=== PATIENT | female | born 1940 | race Caucasian/White ===

== ENCOUNTER 2024-02-07 12:07 | Inpatient (IN) | payer OTHER ==
[~2024-02-07] VITALS: Ht 149.9 cm; Wt 64.0 kg
[2024-02-07 12:43] LABS: Basophils # (auto) 0.1 10 ^3/uL (0-0.2); Basophils % (auto) 0.9 % (0.0-2.0); Eosinophils # (auto) 0.1 10 ^3/uL (0-0.8); Eosinophils % (auto) 1.9 % (0.0-7.0); Hematocrit 42.2 % (36.0-46.0); Hemoglobin 14.6 g/dL (12.2-16.2); Lymphocytes # (auto) 2.2 10 ^3/uL (0.4-5.4); Lymphocytes % (auto) 29.3 % (10.0-50.0); Mean Corpuscular Hemoglobin 30.8 pg (28.0-32.0); Mean Corpuscular Hgb Conc. 34.6 g/dL (32.0-36.0); Monocytes # (auto) 0.6 10 ^3/uL (0-1.3); Neutrophils # (auto) 4.4 10 ^3/uL (1.6-8.6); Neutrophils % (auto) 59.9 % (37.0-80.0); Red Blood Cells 4.74 10^6/uL (4.0-5.20); Red Cell Distribution Width 14.8 % (11.8-14.3); White Blood Cell 7.3 10^3/uL (4.4-10.8)
[2024-02-07 12:47] LABS: Chloride 109 mmol/L (98-107); Potassium 4.1 mmol/L (3.5-5.1); Sodium 143 mmol/L (136-145)
[2024-02-07 12:48] LABS: Anion Gap 10 (5-15); Carbon Dioxide 24 mmol/L (20-30)
[2024-02-07 12:53] LABS: BUN/Creatinine Ratio 22.9 (10.0-20.0); Blood Urea Nitrogen 19 mg/dL (9-23); Glucose 186 mg/dL (74-106)
[2024-02-07 13:33] LABS: Urine Bacteria FEW /hpf (None Seen); Urine Blood Negative /uL (Negative); Urine Clarity Clear (Clear); Urine Color Yellow (Yellow); Urine Mucus FEW (None Seen); Urine Protein, UAD TRACE (Negative); Urine Specific Gravity 1.024 (1.001-1.035); Urine Urobilinogen Normal (Negative); Urine WBC 59 /hpf (0 - 5); Urine pH 5.5 (5.0-9.0)
[2024-02-07 16:19] VITALS: PULSE 82; RESP 16; O2SAT 95
[2024-02-07] MEDS ORDERED: DEXTROSE (50%) 50ML SYRG IV PRN (16:45)
[2024-02-07] MEDS ORDERED: ONDANSETRON HCL 4 MG/2 ML VIAL IV PRN (16:45)
[2024-02-07] MEDS: InsuLIN REG 1unit/0.01ml Soln (100units/ml) SC SCH (17:00)
[2024-02-07] MEDS: ACCU-CHEK COMFORT CURVE STRIP VI SCH (17:00)
[2024-02-07 19:55] VITALS: PULSE 82; RESP 16; O2SAT 96
[2024-02-07] MEDS: hydrALAZINE HCL 20 MG/ML VL IV ONE (20:39)
[2024-02-07 22:26] VITALS: PULSE 82; RESP 18; O2SAT 98
[2024-02-07] MEDS: NITROFURANTOIN 100 mg CAP PO SCH (23:01)
[2024-02-07] MEDS: ATORVASTATIN 20 MG TAB PO SCH (23:02)
[2024-02-08 00:06] VITALS: BP 134/62; PULSE 86; RESP 18; TEMP 97.7; O2SAT 97
[2024-02-08 01:00] VITALS: BP 113/54; PULSE 89; RESP 18; TEMP 97.9; O2SAT 98
[2024-02-08] MEDS: ACETAMINOPHEN 325 MG TAB PO PRN (02:49)
[2024-02-08 05:00] VITALS: BP 119/44; PULSE 79; RESP 18; TEMP 98; O2SAT 95
[2024-02-08 08:00] VITALS: BP 118/52; PULSE 80; RESP 15; TEMP 97.8; O2SAT 95
[2024-02-08] MEDS: NIFEdipine ER 30 MG TAB PO SCH (10:26)
[2024-02-08] MEDS: LOSARTAN POTASSIUM 50 MG TAB PO SCH (10:26)
[2024-02-08] MEDS: CLOPIDOGREL BISULFATE 75 MG TAB PO SCH (10:26)
[2024-02-08] MEDS: ENOXAPARIN SOD 40 MG/0.4 ML SYRINGE SC SCH (10:27)
[2024-02-08 11:48] VITALS: BP 123/63; PULSE 80; RESP 17; TEMP 97.8; O2SAT 94
[2024-02-08 14:27] VITALS: BP 123/63; PULSE 80; RESP 17; TEMP 97.8; O2SAT 94
== END 2024-02-08 15:50 | disposition home or self-care (01) | DRG 872 ==
LOC: ER 12:16 → OVERFLOW 16:47 → WEST WING 21:41
PROVIDERS: ADMIT Nurse Practitioner; ATTEND Nurse Practitioner
DX: A41.9 Sepsis, unspecified organism (principal); N39.0 Urinary tract infection, site not specified; E78.5 Hyperlipidemia, unspecified; E11.65 Type 2 diabetes mellitus with hyperglycemia; I11.0 Hypertensive heart disease with heart failure; I50.9 Heart failure, unspecified; Z88.0 Allergy status to penicillin; Z86.73 Personal history of transient ischemic attack (TIA), and cerebral infarction without residual deficits; Z90.49 Acquired absence of other specified parts of digestive tract; Z91.041 Radiographic dye allergy status
CPT/HCPCS: 36415; 71045; 80048; 81001; 82962; 84443; 84484; 85025; G0378

== ENCOUNTER → 2024-02-10 | Outpatient (CLI) | payer OTHER ==
[2024-02-10 13:32] LABS: Chloride 107 mmol/L (98-107); Potassium 4.2 mmol/L (3.5-5.1); Sodium 140 mmol/L (136-145)
[2024-02-10 13:33] LABS: Anion Gap 8 (5-15); Carbon Dioxide 25 mmol/L (20-30)
[2024-02-10 13:38] LABS: BUN/Creatinine Ratio 26.8 (10.0-20.0); Blood Urea Nitrogen 26 mg/dL (9-23); Glucose 179 mg/dL (74-106)
[2024-02-10 13:45] LABS: Creatinine, Urine 243.25 mg/dL (30.0-125.0)
== END | disposition home or self-care (01) ==
LOC: LAB 12:45
PROVIDERS: ATTEND Internal Medicine
DX: E11.9 Type 2 diabetes mellitus without complications (principal)
CPT/HCPCS: 36415; 80048; 82043; 82570

== ENCOUNTER 2024-08-19 07:01 | Inpatient (IN) | payer OTHER ==
[~2024-08-19] VITALS: Ht 149.9 cm; Wt 67.2 kg
[2024-08-19] VITALS (13 sets, daily range): BP systolic 102–147; BP diastolic 46–68; PULSE 94–109; RESP 12–18; TEMP 97.6–98.4; O2SAT 93–99
[2024-08-19] MEDS: methylPREDNISolone SOD SUCC 125 MG/2 ML VL ONE (07:54)
[2024-08-19] MEDS: LIDOCAINE 2%HCL (LOCAL ANESTH.) INJ 20ML MDV ONE (07:55)
[2024-08-19] MEDS: MIDAZOLAM HCL 2MG/2ML 2ml VIAL (1mg/ml) ONE ×2 (07:55→10:20)
[2024-08-19] MEDS: fentaNYL CITRATE 100 MCG/2 ML VL ONE (07:55)
[2024-08-19] MEDS: diphenhdrAMINE HCL 50 MG/1 ML VL ONE (07:55)
[2024-08-19] MEDS: FAMOTIDINE (10MG/ML) 2ML VL IV ONE (07:56)
[2024-08-19] MEDS: hydrALAZINE HCL 20 MG/ML VL ONE (09:16)
[2024-08-19] MEDS: ANGIOMAX 250 MG VIAL IV ONE ×2 (09:24→10:44)
[2024-08-19] MEDS: SODIUM CHL 0.9% 50 ML ONE ×2 (09:25→10:45)
[2024-08-19] MEDS: IODIXANOL 320MG/ML 100ML BTL IV ONE (09:52)
[2024-08-19] MEDS: HYDROmorphone HCL 2 MG/ML VL/or syr ONE (10:25)
[2024-08-19] MEDS: GLYCOPYRROLATE 0.2 MG/ML 1ML VIAL ONE (10:35)
[2024-08-19] MEDS: CLOPIDOGREL BISULFATE 75 MG TAB ONE (10:55)
--- NOTE | 2024-08-19 11:22 | DVHOP2 ---
Operative Report - 2 Report Details Date: 08/19/24 Preop Diagnosis: TIA. CVA. Carotid stenosis Postop Diagnosis: Successful stenting of the left internal carotid artery Surgeon: Cristofer Arteaga MD Anesthesiologist: Conscious sedation Anesthesia: Mac, Local (Local anesthetic to the right groin given by me. Conscious sedation administered by attending nurse. I supervised the administration and oversaw the administration of the conscious sedation and observed patient throughout procedure.) Consent: The patient was informed of the risks and benefits of the procedure. These include but are not limited to complications of anesthesia, postoperative infection, incomplete relief of symptoms, recurrence of symptoms, damage to blood vessels, nerves and tendons, deep venous thrombosis, pulmonary embolism and possible need for repeat surgery in the future. Complications: No complications. Estimated Blood Loss: 10 cc Findings: Bilateral carotid stenosis Indications for Surgery: History carotid stenosis and TIAs/CVA Name of Procedure Performed Angiographic evaluation bilateral carotid arteries left subclavian and right innominate artery. GROUND SYSTEMS ENGINEER and stenting of left internal carotid artery. Procedure Details Procedure Details: Prior local anesthesia with 2% lidocaine to the right groin and full informed consent obtained the patient was prepped and draped in the usual fashion followed by placement of a six Vincentian sheath into the right femoral artery through which a diagnostic catheter was used to perform angiography of innominate left common carotid and left subclavian arteries selectively. After identifying areas of stenosis we then proceeded to find an eight Vincentian multipurpose guide. Angiographic evaluation and procedure SOB delineated. Aortic blood pressure was elevated at one 80/90. End-diastolic pressure not measured. Angiographic evaluation of the right internal carotid shows a 60-70% ostial lesion of the right internal carotid. The right common carotid is within normal limits as is the right vertebral. There was bovine anatomy with left common carotid originating from the right innominate at the base. There was no stenosis of the common carotid. The internal carotid distal to the bifurcation of the external carotid as a 75-80% eccentric stenosis. The left subclavian is within normal limits. The origin of the left vertebral artery has a 50-60% stenosis. The thyrocervical branches small and free of significant disease. We proceeded to cannulate the right internal carotid by using a quick cross catheter and a 035 support wire. We were able to seat the 035 guide an eight Vincentian multipurpose guide catheter into the midportion of the right internal carotid. Some difficulty was encountered given the bovine anatomy. We then placed an Emboshield across the area of stenosis. The Emboshield was placed at the base of the skull. We then pre-dilated with a 4 mm Euphora balloon. We then placed a Xact carotid stent system 9-7 mm x 40 mm. This was post dilated with a 4 mm balloon. There was excellent antegrade flow without thrombus formation under dissection. We then removed the Emboshield successfully. The patient had no neurologic complications. She remained hemodynamically stable. The sheath was pulled manually. Impression successful GROUND SYSTEMS ENGINEER and stenting of the left internal carotid artery. Placement of an Xact stent into the left internal carotid. Postprocedure angiography revealed no embolization or stenosis. Consider stenting of the right internal carotid artery if any symptoms develop. Condition Good Disposition Still a Patient Date of Service: Aug 19, 2024 Billing Provider: CRISTOFER ARTEAGA Sr., MD Cardiology Common Codes: [id number] INP/OBS CARE (High) (Carotid stenting) CRISTOFER ARTEAGA Sr., MD Aug 19, 2024 11:22
[2024-08-19] MEDS ORDERED: MORPHINE SULFATE INJ 2 MG/ml SYRG IV PRN (11:30)
[2024-08-19] MEDS ORDERED: NITROGLYCERIN 0.4 MG SL TAB SL PRN (11:30)
[2024-08-19] MEDS ORDERED: GLIP-110 PO (12:41)
[2024-08-19] MEDS ORDERED: ALEN70TA74 PO (12:41)
[2024-08-19] MEDS ORDERED: TRAM50TA2 PO (12:41)
[2024-08-19] MEDS ORDERED: CLOP75TA70 PO (12:41)
[2024-08-19] MEDS ORDERED: ATOR20TA50 PO (12:41)
[2024-08-19] MEDS ORDERED: INSUINJ37 SC (12:41)
[2024-08-19] MEDS ORDERED: GAB100C PO (12:41)
[2024-08-19] MEDS ORDERED: NIFE1TAB30 PO (12:41)
[2024-08-19] MEDS ORDERED: LOSA-534 PO (12:41)
[2024-08-19] MEDS ORDERED: traMADol HCL 50 MG TAB PO PRN (12:45)
[2024-08-19] MEDS ORDERED: DEXTROSE (50%) 50ML SYRG IV PRN (12:45)
--- NOTE | 2024-08-19 12:50 | DVHHP2 ---
History of Present Illness Reason for Visit: Carotid stenosis History of Present Illness Marilynn Root is an 83-year-old female with past medical history of hypertension, hyperlipidemia, diabetes, carotid stenosis, and a CVA in May 2024, who came in for a scheduled carotid stent placement. 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: CVA (right sided weakness) Endocrine: Diabetes Past Surgical History: Cholecystectomy, (x 3), Other (back surgery) Smoke: No ALCOHOL: none Drugs: None Lives: Alone Domestic Violence: Neg Review of Systems Constitutional: No: Fever, Chills, Sweats, Weakness, Malaise, Other Eyes: No: Pain, Vision change, Conjunctivae inflammation, Eyelid inflammation, Other, Redness ENT: No: Ear pain, Ear discharge, Nose pain, Nose discharge, Nose congestion, Mouth pain, Mouth swelling, Throat pain, Throat swelling, Other Respiratory: No: Cough, Dry, Shortness of breath, SOB with excertion, Wheezing, Hemoptysis, Pleuritic Pain, Sputum, Wheezing, Other Cardiovascular: No: Chest Pain, Palpitations, Orthopnea, Paroxysmal Noc. Dyspnea, Edema, Lt Headedness, Other Gastrointestinal: No: Nausea, Vomiting, Abdominal Pain, Diarrhea, Constipation, Melena, Hematochezia, Other Genitourinary: No Dysuria, No Frequency, No Incontinence, No Hematuria, No Retention, No Other Musculoskeletal: No: other, neck pain, shoulder pain, arm pain, back pain, hand pain, leg pain, foot pain Skin: No: Rash, Lesions, Jaundice, Bruising, Other Neurological: No: Weakness, Numbness, Incoordination, Change in speech, Confusion, Seizures, Other Other S/P scheduled carotid stent placement. Allergies: Coded Allergies: Iodine (Verified Allergy, Unknown, 08/17/24) Penicillins (Verified Allergy, Unknown, 08/17/24) Medications Current Medications Medications Dose Ordered Sig/Chema Route Start Time Stop Time Status Last Admin Dose Admin Nitroglycerin 0.4 mg Q5MINP PRN SL 08/19/24 11:30 Morphine Sulfate 2 mg Q30M PRN IV 08/19/24 11:30 Sodium Chloride 1,000 ml @ 75 mls/hr [id number] IV 08/19/24 12:30 Exam General Appearance: Alert, Oriented X3, Cooperative, No acute distress HEENT: Atraumatic, PERRLA, Mucous membr. moist/pink Respiratory: Clear to auscultation, Normal air movement Cardiovascular: Regular rate, Normal S1, Normal S2 Abdominal: Normal bowel sounds, Soft, No tenderness Extremities: No clubbing, No cyanosis, No edema, Normal pulses Skin: No rashes, No breakdown, No significant lesion Neuro: Normal gait, Normal speech, Strength at 5/5 X4 ext Psych/Mental Status: Mental status NL, Mood NL Labs/Xrays Labs ordered and pending. Labs Test 08/19/24 08:38 Range/Units POC Glucose 158 H 70-106 mg/dl Assessment/Plan Assessment/Plan Assessment: Carotid stenosis, S/P Carotid stent placement, Hypertension, Hyperlipidemia, Diabetes, Plan: Admit to Tele, Cardiology following, Accu checks Q AC&HS with sliding scale, Home medications reconciled, Plan discussed with: Patient My Orders Orders - YULIYA DENNY Procedure Category Date Status Time Atorvastatin (Lipitor) PHA 08/20/24 Transmitted 10:00 Clopidogrel Bisulfate PHA 08/20/24 Transmitted (Plavix) 10:00 Gabapentin Capsule PHA 08/20/24 Transmitted (Neurontin Capsule) 10:00 Losartan Tablet PHA 08/20/24 Transmitted (Cozaar Tablet) 10:00 Tramadol Hcl (Ultram) PHA 08/19/24 Transmitted 12:45 (Nf) Glipizide PHA 08/20/24 Transmitted (Glipizide Er) 10:00 (Nf) Insulin Glargine PHA 08/19/24 Transmitted (Lantus Solostar) 22:00 (Nf) Nifedipine PHA 08/20/24 Transmitted (Nifedipine Er) 10:00 Date of Service: Aug 19, 2024 Billing Provider: YULIYA DENNY Common Visit Codes: [id number] INP/OBS CARE (MOD) YULIYA DENNY Aug 19, 2024 12:50
[2024-08-19 13:35] LABS: Basophils # (auto) 0 10 ^3/uL (0-0.2); Basophils % (auto) 0.5 % (0.0-2.0); Eosinophils # (auto) 0 10 ^3/uL (0-0.8); Eosinophils % (auto) 0.3 % (0.0-7.0); Hematocrit 44.1 % (36.0-46.0); Hemoglobin 14.1 g/dL (12.2-16.2); Lymphocytes # (auto) 0.7 10 ^3/uL (0.4-5.4); Mean Corpuscular Hemoglobin 28.8 pg (28.0-32.0); Monocytes # (auto) 0.1 10 ^3/uL (0-1.3); Monocytes % (auto) 1.7 % (0.0-12.0); Neutrophils # (auto) 5.5 10 ^3/uL (1.6-8.6); Neutrophils % (auto) 86.5 % (37.0-80.0); Nucleated Red Blood Cells % 0.1 %; Platelet Count (auto) 136 10^3/uL (140-450); Red Blood Cells 4.89 10^6/uL (4.0-5.20); White Blood Cell 6.4 10^3/uL (4.4-10.8)
[2024-08-19 14:01] LABS: Alanine Aminotransferase 29 U/L (7-40); Albumin 4.2 g/dL (3.2-4.8); Anion Gap 10 (5-15); Aspartate Aminotransferase 22 U/L (13-40); BUN/Creatinine Ratio 22.2 (10.0-20.0); Bilirubin, Total 0.3 mg/dL (0.2-1.0); Blood Urea Nitrogen 16 mg/dL (9-23); Calcium 9.6 mg/dL (8.7-10.4); Carbon Dioxide 20 mmol/L (20-31); Potassium 4.3 mmol/L (3.5-5.1); Sodium 142 mmol/L (136-145); Total Protein 6.7 g/dL (5.7-8.2)
[2024-08-19 14:05] LABS: Alkaline Phosphatase 123 U/L (46-116); Chloride 112 mmol/L (98-107); Glucose 206 mg/dL (74-106)
[2024-08-19] MEDS: SODIUM CHLORIDE 0.9% 1,000 ML IV SCH (17:08)
[2024-08-19] MEDS: ACCU-CHEK COMFORT CURVE STRIP VI SCH (17:09)
[2024-08-19] MEDS: InsuLIN REG 1unit/0.01ml Soln (100units/ml) SC SCH ×2 (17:10→21:24)
[2024-08-19] MEDS ORDERED: SOD CHL 0.45% 1,000 ML IV SCH (19:15)
[2024-08-19] MEDS: ATORVASTATIN 20 MG TAB PO SCH (21:18)
[2024-08-19] MEDS: INSULIN LANTUS (GLARGINE) 1 /0.01ml (100units/ml) SC SCH (21:25)
[2024-08-20 01:00] VITALS: BP 116/39; PULSE 92; RESP 17; TEMP 97.8; O2SAT 94
[2024-08-20 05:00] VITALS: BP 125/57; PULSE 91; RESP 18; TEMP 98.3; O2SAT 97
[2024-08-20 07:04] LABS: Basophils # (auto) 0 10 ^3/uL (0-0.2); Basophils % (auto) 0.3 % (0.0-2.0); Eosinophils # (auto) 0 10 ^3/uL (0-0.8); Eosinophils % (auto) 0.2 % (0.0-7.0); Hematocrit 36.9 % (36.0-46.0); Hemoglobin 12.4 g/dL (12.2-16.2); Lymphocytes # (auto) 1.7 10 ^3/uL (0.4-5.4); Lymphocytes % (auto) 17.9 % (10.0-50.0); Mean Corpuscular Hemoglobin 29.6 pg (28.0-32.0); Mean Corpuscular Hgb Conc. 33.5 g/dL (32.0-36.0); Mean Corpuscular Volume 88.3 fL (80.0-100.0); Monocytes # (auto) 0.9 10 ^3/uL (0-1.3); Monocytes % (auto) 9.5 % (0.0-12.0); Neutrophils % (auto) 72.1 % (37.0-80.0); Platelet Count (auto) 141 10^3/uL (140-450); Red Blood Cells 4.18 10^6/uL (4.0-5.20); Red Cell Distribution Width 16.1 % (11.8-14.3); White Blood Cell 9.8 10^3/uL (4.4-10.8)
[2024-08-20 07:20] LABS: Anion Gap 9 (5-15); Calcium 9.5 mg/dL (8.7-10.4); Carbon Dioxide 25 mmol/L (20-31)
[2024-08-20 07:26] LABS: BUN/Creatinine Ratio 37.7 (10.0-20.0); Glucose 88 mg/dL (74-106)
[2024-08-20 07:29] LABS: Blood Urea Nitrogen 26 mg/dL (9-23); Chloride 112 mmol/L (98-107); Sodium 146 mmol/L (136-145)
[2024-08-20 08:00] VITALS: PULSE 89; RESP 19; O2SAT 94
[2024-08-20 09:00] VITALS: BP 122/60; PULSE 89; RESP 19; TEMP 98.1; O2SAT 94
[2024-08-20] MEDS: CLOPIDOGREL BISULFATE 75 MG TAB PO SCH (09:44)
[2024-08-20] MEDS: GABAPENTIN 100 MG CAP PO SCH (09:44)
[2024-08-20] MEDS: LOSARTAN POTASSIUM 50 MG TAB PO SCH (09:45)
[2024-08-20] MEDS: NIFEdipine ER 30 MG TAB PO SCH (09:45)
[2024-08-20] MEDS: glipiZIDE 5 MG TAB PO SCH (11:19)
--- NOTE | 2024-08-20 11:27 | DVHDS2 ---
Discharge Summary Date of Admission Aug 19, 2024 at 11:25 Date of Discharge: Aug 20, 2024 Labs/Diagnostic Data: Laboratory Results Test 08/20/24 11:07 08/20/24 06:11 08/19/24 13:00 POC Glucose 150 mg/dl (70-106) White Blood Count 9.8 10^3/uL (4.4-10.8) Red Blood Count 4.18 10^6/uL (4.0-5.20) Hemoglobin 12.4 g/dL (12.2-16.2) Hematocrit 36.9 % (36.0-46.0) Mean Corpuscular Volume 88.3 fL (80.0-100.0) Mean Corpuscular Hemoglobin 29.6 pg (28.0-32.0) Mean Corpuscular Hemoglobin Concent 33.5 g/dL (32.0-36.0) Red Cell Distribution Width 16.1 % (11.8-14.3) Platelet Count 141 10^3/uL (140-450) Mean Platelet Volume 9.5 fL (6.9-10.8) Neutrophils (%) (Auto) 72.1 % (37.0-80.0) Lymphocytes (%) (Auto) 17.9 % (10.0-50.0) Monocytes (%) (Auto) 9.5 % (0.0-12.0) Eosinophils (%) (Auto) 0.2 % (0.0-7.0) Basophils (%) (Auto) 0.3 % (0.0-2.0) Neutrophils # (Auto) 7.0 10 ^3/uL (1.6-8.6) Lymphocytes # (Auto) 1.7 10 ^3/uL (0.4-5.4) Monocytes # (Auto) 0.9 10 ^3/uL (0-1.3) Eosinophils # (Auto) 0 10 ^3/uL (0-0.8) Basophils # (Auto) 0 10 ^3/uL (0-0.2) Nucleated Red Blood Cells 0.0 % Sodium Level 146 mmol/L (136-145) Potassium Level 4.0 mmol/L (3.5-5.1) Chloride Level 112 mmol/L (98-107) Carbon Dioxide Level 25 mmol/L (20-31) Anion Gap 9 (5-15) Blood Urea Nitrogen 26 mg/dL (9-23) Creatinine 0.69 mg/dL (0.550-1.02) Glomerular Filtration Rate Calc 86 mL/min (>90) BUN/Creatinine Ratio 37.7 (10.0-20.0) Serum Glucose 88 mg/dL (74-106) Calcium Level 9.5 mg/dL (8.7-10.4) Total Bilirubin 0.3 mg/dL (0.2-1.0) Aspartate Amino Transferase (AST) 22 U/L (13-40) Alanine Aminotransferase (ALT) 29 U/L (7-40) Alkaline Phosphatase 123 U/L (46-116) Total Protein 6.7 g/dL (5.7-8.2) Albumin 4.2 g/dL (3.2-4.8) Other Laboratory Tests 08/20/24 06:11 Brief Hx & Hospital Course: SEE DICTATED NOTE Condition at Discharge: Good Final Diagnosis/Problems List Successful stenting of the left internal carotid artery Discharge Disposition: Home Discharge Instruct/Medications Diet: Cardiac 2g Na,low cholest Activity: No Restrictions, As Tolerated Follow Up/Referral: BARBARA YOUSIF PCP/DR [place] IN 1 WK Medications: RESUME HOME MEDS ASA 81 MG DAILY Discharge Statement: "Patient was advised to return to the ER or call 911 if any headaches, dizziness, shortness of breath, chest pain, abdominal pain, bleeding, fevers, or worsening of medical condition. Patient was counseled about treatment plan, medications, possible side effects, patientverbalized understanding. All questions were answered to the best of my ability. This discharge took greater then 30 minutes in planning, reviewing documentation, counseling the patient, and discussing with other team members." ASSESSMENT ASSESSMENT Assessment Successful stenting of the left internal carotid artery Date of Service: Aug 20, 2024 Billing Provider: CANDICE LEVINE MD Common Visit Codes: 52023-LVT/OBS DISCH DAY >30min Secondary Visit Codes: [id number] CARE PLAN 30 MINUTES CANDICE LEVINE MD Aug 20, 2024 11:27
[2024-08-20 12:28] VITALS: BP 138/59; PULSE 88; RESP 17; TEMP 98.3; O2SAT 96
[2024-08-20 13:00] VITALS: BP 138/56; PULSE 88; RESP 17; TEMP 98.3; O2SAT 96
--- NOTE | 2024-08-20 13:06 | DVHDS ---
DATE OF DISCHARGE: 08/20/2024 HISTORY OF PRESENT ILLNESS: The patient is an 83-year-old lady who was admitted for carotid stenosis and stenting. She has history of hypertension, hyperlipidemia, diabetes and CVA. HOSPITAL COURSE: The patient underwent angiogram with stenting of the left internal carotid artery by Dr. Arteaga. The patient has done well post procedure. As per my discussion with Dr. Arteaga, she is now cleared to go home. The patient will be discharged to resume her home medications as well as she will be on aspirin 81 mg daily. She will follow up with Dr. Arteaga and her primary in 1 week. FINAL DIAGNOSES: Therefore, * Left carotid stenosis, status post stents. * Hypertension. * Hyperlipidemia. * Diabetes mellitus. * History of cerebrovascular accident. Time spent in discharge planning and review of plan with the patient and nursing was 38 minutes. ADVANCE CARE PLANNING: The patient is a full code. MD ROSELINE Gunderson/AB/DEMIAN TID: [id number] RECEIPT: [id number] MTDD
== END 2024-08-20 13:30 | disposition home or self-care (01) | DRG 35 ==
LOC: CATH 07:01 → OVERFLOW 11:25 → TELE-EAST 15:35
PROVIDERS: ADMIT Internal Medicine; ATTEND Internal Medicine
PROC: 037L3DZ Dilation of Left Internal Carotid Artery with Intraluminal Device, Percutaneous Approach (ICD-10-PCS; principal; 2024-08-19)
PROC: B312YZZ Fluoroscopy of Left Subclavian Artery using Other Contrast (ICD-10-PCS; 2024-08-19)
PROC: B318YZZ Fluoroscopy of Bilateral Internal Carotid Arteries using Other Contrast (ICD-10-PCS; 2024-08-19)
PROC: B31CYZZ Fluoroscopy of Bilateral External Carotid Arteries using Other Contrast (ICD-10-PCS; 2024-08-19)
PROC: B315YZZ Fluoroscopy of Bilateral Common Carotid Arteries using Other Contrast (ICD-10-PCS; 2024-08-19)
DX: I65.23 Occlusion and stenosis of bilateral carotid arteries (principal); Z00.6 Encounter for examination for normal comparison and control in clinical research program; I69.351 Hemiplegia and hemiparesis following cerebral infarction affecting right dominant side; E11.9 Type 2 diabetes mellitus without complications; E78.5 Hyperlipidemia, unspecified; I10 Essential (primary) hypertension; Z90.49 Acquired absence of other specified parts of digestive tract; Z88.0 Allergy status to penicillin; Z91.041 Radiographic dye allergy status; Z79.899 Other long term (current) drug therapy; Z88.8 Allergy status to other drugs, medicaments and biological substances
CPT/HCPCS: 36223; 36415; 37216; 80048; 80053; 82962; 85025; 99152; G0378; J1815; J2250; J3490; Q9967

== ENCOUNTER 2024-10-07 09:57 | Inpatient (IN) | payer OTHER ==
[2024-10-07] VITALS (8 sets, daily range): BP systolic 100–140; BP diastolic 55–72; PULSE 54–95; RESP 13–20; TEMP 97.3–98; O2SAT 92–97
[~2024-10-07] VITALS: Ht 149.9 cm; Wt 58.6 kg
[~2024-10-07 09:57] MED LIST: ALEN70TA74 PO; ASPI1TAB20 PO; ATOR20TA50 PO; CLOP75TA70 PO; GAB100C PO; GLIP-110 PO; INSUINJ37 SC; LOSA-534 PO; NIFE1TAB30 PO; TRAM50TA2 PO
[2024-10-07] MEDS: ANGIOMAX 250 MG VIAL IV ONE (14:19)
[2024-10-07] MEDS: GLYCOPYRROLATE 0.2 MG/ML 1ML VIAL ONE (14:19)
[2024-10-07] MEDS: fentaNYL CITRATE 100 MCG/2 ML VL ONE (14:19)
[2024-10-07] MEDS: SODIUM CHL 0.9% 50 ML ONE (14:20)
[2024-10-07] MEDS: IODIXANOL 320MG/ML 100ML BTL IV ONE (14:20)
[2024-10-07] MEDS: MIDAZOLAM HCL 2MG/2ML 2ml VIAL (1mg/ml) ONE (14:20)
[2024-10-07] MEDS: LIDOCAINE 2%HCL (LOCAL ANESTH.) INJ 20ML MDV ONE (14:20)
[2024-10-07] MEDS: HEPARIN IN NS 1000Units/500mL 1,500 ML ONE (14:21)
[2024-10-07] MEDS: methylPREDNISolone SOD SUCC 125 MG/2 ML VL ONE (14:34)
[2024-10-07] MEDS: diphenhdrAMINE HCL 50 MG/1 ML VL ONE (14:34)
[2024-10-07] MEDS: FAMOTIDINE (10MG/ML) 2ML VL IV ONE (14:34)
[2024-10-07] MEDS: METOPROLOL TARTRATE 1MG/1ML-5ML VIAL IV ONE (15:08)
[2024-10-07] MEDS ORDERED: NITROGLYCERIN 0.4 MG SL TAB SL PRN ×2 (16:30→17:00)
[2024-10-07] MEDS ORDERED: MORPHINE SULFATE INJ 2 MG/ml SYRG IV PRN ×2 (16:30→17:00)
[2024-10-07] MEDS ORDERED: ACETAMINOPHEN 325 MG TAB PO PRN (17:00)
[2024-10-07] MEDS ORDERED: traMADol HCL 50 MG TAB PO PRN (17:00)
[2024-10-07] MEDS ORDERED: DEXTROSE (50%) 50ML SYRG IV PRN (17:00)
--- NOTE | 2024-10-07 17:05 | DVHHPRES ---
History of Present Illness Resident Creating Document: REKHA PAULINO RESIDENT History of Present Illness AVERY AVILA With a PMH of HTN, HLD, type 2 DM, carotid stenosis, CVA presented to the hospital for the scheduled angiogram with a stent placement in right internal carotid artery. Patient reported 2 months back she underwent left- sided carotid artery stenting and scheduled another surgery today. Patient denies fever, nausea, vomiting, chest pain, dizziness, lightheadedness, shortness of breath and other associated symptoms. PMH: HTN, HLD, type 2 DM, carotid stenosis, CVA PSH: Cholecystectomy, x3, back surgery Family history: Reviewed, noncontributory Social history: Lives alone. Denies smoking, alcohol and other drug abuse Allergies: No known allergies Patient seen and examined at the bedside in cath lab radiological technologist. Status post ATTACHE and stenting of right internal carotid artery, patient tolerated procedure well, currently monitoring. Review of Systems Review of Systems Patient seen and examined at the bedside in cath lab radiological technologist. Status post ATTACHE and stenting of right internal carotid artery, patient tolerated procedure well, currently monitoring. Allergies: Coded Allergies: Iodine (Verified Allergy, Unknown, 10/06/24) Penicillins (Verified Allergy, Unknown, 10/06/24) Medications Current Medications Medications Dose Ordered Sig/Chema Route Start Time Stop Time Status Last Admin Dose Admin Nitroglycerin 0.4 mg Q5MINP PRN SL 10/07/24 16:30 Morphine Sulfate 2 mg Q30M PRN IV 10/07/24 16:30 Atorvastatin Calcium 20 mg DAILY PO 10/08/24 10:00 UNV Losartan Potassium 50 mg DAILY PO 10/08/24 10:00 UNV Tramadol HCl 50 mg Q8HPRN PRN PO 10/07/24 17:00 UNV Diagnostic Test (Pha) 1 strip ACHS 10/07/24 17:00 UNV Insulin Human Regular ACHS SC 10/07/24 17:00 UNV Dextrose 50 ml UD PRN IV 10/07/24 17:00 UNV Sodium Chloride 1,000 ml @ 60 mls/hr [id number] IV 10/07/24 17:00 UNV Acetaminophen 650 mg Q6HP PRN PO 10/07/24 17:00 UNV Nitroglycerin 0.4 mg Q5MINP PRN SL 10/07/24 17:00 UNV Morphine Sulfate 2 mg Q30M PRN IV 10/07/24 17:00 UNV Exam Exam Pt is lying on bed General Appearance: Alert, Oriented X3, Cooperative, Not in acute distress HEENT: Atraumatic, Mucous membranes moist/pink Respiratory: Clear to auscultation, Normal air movement, No added sounds Cardiovascular: Regular rate, Normal S1, Normal S2, No murmurs Abdominal: Active bowel sounds, Soft, no distention, no tenderness Extremities: Angiogram site right groin, no signs of infection or inflammation. No edema, Normal pulses, No tenderness Skin: No Significant rash, except past surgical scars Neuro: Normal speech, sensorimotor deficits none Psych/Mental Status: Mental status NL, Mood NL Nurse was there as sharperone during examination Assessment/Plan Assessment/Plan # B/L Carotid artery stenosis s/p ATTACHE and stenting of right internal carotid artery - postoperative day 0 status post right internal carotid artery stent - monitor for 12-24 hours - resume cardiac and diabetic diet - resume home meds - monitor lab # Type 2 DM - Accu-Cheks and mild ISS # HTN - monitor for now - hydralazine 10 mg p.r.n. sbp if more than 160 if needed No GI be PPX SCDs Cardiac and diabetic diet Goals of care discussed with the patient for more than 27 minutes: Full code status Case discussed with Dr. Soares, patient and nurse Plan discussed with: Patient My Orders Orders - REKHA PAULINO RESIDENT Procedure Category Date Status Time Atorvastatin (Lipitor) PHA 10/08/24 Logged 10:00 Losartan Tablet PHA 10/08/24 Logged (Cozaar Tablet) 10:00 Tramadol Hcl (Ultram) PHA 10/07/24 Logged 17:00 Consistent DIET 10/07/24 Transmitted Carb(Ccho)Diabetes Dinner Glucose Blood PHA 10/07/24 Logged (Accu-Chek Comfort 17:00 Insulin R (Human) PHA 10/07/24 Logged (Insulin R) 17:00 Dextrose 50% Syringe PHA 10/07/24 Logged 17:00 Complete Blood Count LAB 10/07/24 Logged 16:58 Comprehensive LAB 10/07/24 Logged Metabolic Panel 16:58 Complete Blood Count LAB 10/08/24 Verified 04:00 Basic Metabolic Panel LAB 10/08/24 Verified 04:00 Urinalysis LAB 10/07/24 Logged 16:58 Magnesium LAB 10/07/24 Logged 16:58 Admit ADMIT 10/07/24 Transmitted 17:00 Allergies ROSALVA 10/07/24 In Process 17:00 Code Status CODE 10/07/24 Transmitted 17:00 2 Gm Sodium Diet DIET 10/07/24 Transmitted Dinner Sodium Chloride 0.9% PHA 10/07/24 Logged 17:00 Cardiac DIET 10/07/24 Transmitted Diet-2gna,Lofat,Lochol Dinner Condition: Stable ROSALVA 10/07/24 In Process 17:00 Acetaminophen Tablet PHA 10/07/24 Logged (Tylenol Tablet) 17:00 Sequential ROSALVA 10/07/24 In Process Compression Device Nitroglycerin PHA 10/07/24 Logged Sublingual (Ntrostat 17:00 Morphine Sulfate PHA 10/07/24 Logged Injection 17:00 Oxygen By Nasal RT 10/07/24 Transmitted Cannula 17:00 Hemoglobin A1c LAB 10/07/24 Transmitted 17:03 Date of Service: Oct 07, 2024 Billing Provider: BRIGETTE SOARES MD Common Visit Codes: [id number] INP/OBS CARE (HIGH) Secondary Visit Codes: [id number] CARE PLAN 30 MINUTES REKHA PAULINO RESIDENT Oct 07, 2024 17:05 BRIGETTE SOARES MD Oct 07, 2024 17:19
[2024-10-07] MEDS: SODIUM CHLORIDE 0.9% 1,000 ML IV SCH (18:14)
[2024-10-07] MEDS: InsuLIN REG 1unit/0.01ml Soln (100units/ml) SC SCH (18:14)
[2024-10-07] MEDS: ACCU-CHEK COMFORT CURVE STRIP VI SCH (18:14)
[2024-10-07 18:34] LABS: Basophils # (auto) 0 10 ^3/uL (0-0.2); Basophils % (auto) 0.5 % (0.0-2.0); Eosinophils # (auto) 0.1 10 ^3/uL (0-0.8); Eosinophils % (auto) 0.9 % (0.0-7.0); Hematocrit 41.6 % (36.0-46.0); Hemoglobin 13.7 g/dL (12.2-16.2); Lymphocytes % (auto) 15.3 % (10.0-50.0); Mean Corpuscular Hemoglobin 29.3 pg (28.0-32.0); Mean Corpuscular Hgb Conc. 32.9 g/dL (32.0-36.0); Mean Corpuscular Volume 89.1 fL (80.0-100.0); Monocytes # (auto) 0.1 10 ^3/uL (0-1.3); Monocytes % (auto) 1.8 % (0.0-12.0); Neutrophils # (auto) 5.4 10 ^3/uL (1.6-8.6); Neutrophils % (auto) 81.5 % (37.0-80.0); Nucleated Red Blood Cells % 0.2 %; Platelet Count (auto) 148 10^3/uL (140-450); Red Blood Cells 4.67 10^6/uL (4.0-5.20); Red Cell Distribution Width 15.6 % (11.8-14.3); White Blood Cell 6.6 10^3/uL (4.4-10.8)
[2024-10-07 19:02] LABS: Alanine Aminotransferase 22 U/L (7-40); Albumin 4.5 g/dL (3.2-4.8); Alkaline Phosphatase 87 U/L (46-116); Anion Gap 8 (5-15); BUN/Creatinine Ratio 23.2 (10.0-20.0); Bilirubin, Total 0.7 mg/dL (0.2-1.0); Blood Urea Nitrogen 16 mg/dL (9-23); Calcium 9.6 mg/dL (8.7-10.4); Carbon Dioxide 24 mmol/L (20-31); Glucose 104 mg/dL (74-106); Magnesium 2.1 mg/dL (1.6-2.6); Potassium 3.9 mmol/L (3.5-5.1); Sodium 143 mmol/L (136-145); Total Protein 7.3 g/dL (5.7-8.2)
[2024-10-07 19:05] LABS: Aspartate Aminotransferase 8 U/L (13-40); Chloride 111 mmol/L (98-107)
[2024-10-08 01:00] VITALS: BP 117/60; PULSE 93; RESP 20; TEMP 97.7; O2SAT 91
[2024-10-08 05:00] VITALS: BP 107/48; PULSE 73; RESP 20; TEMP 97.6; O2SAT 93
[2024-10-08 06:37] LABS: Basophils # (auto) 0.1 10 ^3/uL (0-0.2); Basophils % (auto) 0.8 % (0.0-2.0); Eosinophils # (auto) 0.1 10 ^3/uL (0-0.8); Eosinophils % (auto) 1.2 % (0.0-7.0); Hematocrit 37.9 % (36.0-46.0); Hemoglobin 12.4 g/dL (12.2-16.2); Lymphocytes # (auto) 1.2 10 ^3/uL (0.4-5.4); Lymphocytes % (auto) 16.8 % (10.0-50.0); Mean Corpuscular Hemoglobin 29.5 pg (28.0-32.0); Mean Corpuscular Hgb Conc. 32.8 g/dL (32.0-36.0); Mean Corpuscular Volume 89.8 fL (80.0-100.0); Monocytes # (auto) 0.4 10 ^3/uL (0-1.3); Monocytes % (auto) 5.8 % (0.0-12.0); Neutrophils # (auto) 5.5 10 ^3/uL (1.6-8.6); Neutrophils % (auto) 75.4 % (37.0-80.0); Nucleated Red Blood Cells % 0.3 %; Platelet Count (auto) 154 10^3/uL (140-450); Red Blood Cells 4.23 10^6/uL (4.0-5.20); Red Cell Distribution Width 15.6 % (11.8-14.3); White Blood Cell 7.3 10^3/uL (4.4-10.8)
[2024-10-08 06:51] LABS: Anion Gap 8 (5-15); Carbon Dioxide 23 mmol/L (20-31); Potassium 4.5 mmol/L (3.5-5.1); Sodium 145 mmol/L (136-145)
[2024-10-08 06:52] LABS: Calcium 9.1 mg/dL (8.7-10.4); Chloride 114 mmol/L (98-107)
[2024-10-08 06:57] LABS: BUN/Creatinine Ratio 32.9 (10.0-20.0)
[2024-10-08 06:58] LABS: Blood Urea Nitrogen 27 mg/dL (9-23); Glucose 163 mg/dL (74-106)
[2024-10-08 08:00] VITALS: PULSE 76
[2024-10-08] MEDS: ATORVASTATIN 20 MG TAB PO SCH (08:53)
[2024-10-08] MEDS: LOSARTAN POTASSIUM 50 MG TAB PO SCH (08:54)
[2024-10-08 09:00] VITALS: BP 120/53; PULSE 82; RESP 18; TEMP 97.8; O2SAT 95
[2024-10-08 10:42] LABS: Urine Bacteria FEW /hpf (None Seen); Urine Blood Negative /uL (Negative); Urine Clarity Clear (Clear); Urine Color Yellow (Yellow); Urine Mucus FEW (None Seen); Urine Protein, UAD TRACE (Negative); Urine Specific Gravity 1.043 (1.001-1.035); Urine Squamous Epithelial Cell FEW /hpf (<5); Urine Urobilinogen Normal (Negative); Urine WBC 35 /HPF (0-5)
[2024-10-08] MEDS ORDERED: CEPH250C PO (11:40)
--- NOTE | 2024-10-08 12:09 | DVHDSRES ---
Discharge Summary Date of Admission Resident Creating Document: REKHA PAULINO RESIDENT Oct 07, 2024 at 16:26 Date of Discharge: Oct 08, 2024 Admitting Diagnosis Scheduled procedure Labs/Diagnostic Data: Laboratory Results Test 10/08/24 10:29 10/08/24 10:00 10/08/24 05:57 10/07/24 18:09 POC Glucose 150 mg/dl (70-106) Urine Color Yellow (Yellow) Urine Clarity Clear (Clear) Urine pH 6.0 (5.0-9.0) Urine Specific [place] 1.043 (1.001-1.035) Urine Protein Trace (Negative) Urine Ketones Negative (Negative) Urine Blood Negative /uL (Negative) Urine Nitrite 2+ (Negative) Urine Bilirubin Negative (Negative) Urine Urobilinogen Normal mg/dL (Negative) Urine Leukocyte Esterase 1+ /uL (Negative) Urine RBC None seen /hpf (0 - 4) Urine Microscopic WBC 35 /HPF (0-5) Urine Squamous Epithelial Cells Few /hpf (<5) Urine Bacteria Few /hpf (None Seen) Urine Mucus Few (None Seen) Urine Glucose Trace mg/dL (Normal) White Blood Count 7.3 10^3/uL (4.4-10.8) Red Blood Count 4.23 10^6/uL (4.0-5.20) Hemoglobin 12.4 g/dL (12.2-16.2) Hematocrit 37.9 % (36.0-46.0) Mean Corpuscular Volume 89.8 fL (80.0-100.0) Mean Corpuscular Hemoglobin 29.5 pg (28.0-32.0) Mean Corpuscular Hemoglobin Concent 32.8 g/dL (32.0-36.0) Red Cell Distribution Width 15.6 % (11.8-14.3) Platelet Count 154 10^3/uL (140-450) Mean Platelet Volume 9.6 fL (6.9-10.8) Neutrophils (%) (Auto) 75.4 % (37.0-80.0) Lymphocytes (%) (Auto) 16.8 % (10.0-50.0) Monocytes (%) (Auto) 5.8 % (0.0-12.0) Eosinophils (%) (Auto) 1.2 % (0.0-7.0) Basophils (%) (Auto) 0.8 % (0.0-2.0) Neutrophils # (Auto) 5.5 10 ^3/uL (1.6-8.6) Lymphocytes # (Auto) 1.2 10 ^3/uL (0.4-5.4) Monocytes # (Auto) 0.4 10 ^3/uL (0-1.3) Eosinophils # (Auto) 0.1 10 ^3/uL (0-0.8) Basophils # (Auto) 0.1 10 ^3/uL (0-0.2) Nucleated Red Blood Cells 0.3 % Sodium Level 145 mmol/L (136-145) Potassium Level 4.5 mmol/L (3.5-5.1) Chloride Level 114 mmol/L (98-107) Carbon Dioxide Level 23 mmol/L (20-31) Anion Gap 8 (5-15) Blood Urea Nitrogen 27 mg/dL (9-23) Creatinine 0.82 mg/dL (0.550-1.02) Glomerular Filtration Rate Calc 71 mL/min (>90) BUN/Creatinine Ratio 32.9 (10.0-20.0) Serum Glucose 163 mg/dL (74-106) Calcium Level 9.1 mg/dL (8.7-10.4) Hemoglobin A1c 6.4 % A1C (<5.7) Magnesium Level 2.1 mg/dL (1.6-2.6) Total Bilirubin 0.7 mg/dL (0.2-1.0) Aspartate Amino Transferase (AST) 8 U/L (13-40) Alanine Aminotransferase (ALT) 22 U/L (7-40) Alkaline Phosphatase 87 U/L (46-116) Total Protein 7.3 g/dL (5.7-8.2) Albumin 4.5 g/dL (3.2-4.8) Other Laboratory Tests 10/08/24 05:57 Brief Hx & Hospital Course: AVERY AVILA With a PMH of HTN, HLD, type 2 DM, carotid stenosis, CVA presented to the hospital for the scheduled angiogram with a stent placement in right internal carotid artery. Patient reported 2 months back she underwent left- sided carotid artery stenting and scheduled another surgery today. Patient denies fever, nausea, vomiting, chest pain, dizziness, lightheadedness, shortness of breath and other associated symptoms. Patient was admitted carotid stent, patient underwent FLIGHT ENGINEER INSPECTOR and stenting of right internal carotid artery, patient tolerated the procedure well, monitored her labs and vitals. UA is positive for UTI, started on Keflex. Patient condition was improved, hemodynamically stable and in condition to be discharged home with the Keflex and continue home medications. Patient was advised about healthy lifestyle modifications and advised to follow up with PCP and Cardiology after the discharge. Pt is lying on bed General Appearance: Alert, Oriented X3, Cooperative, Not in acute distress HEENT: Atraumatic, Mucous membranes moist/pink Respiratory: Clear to auscultation, Normal air movement, No added sounds Cardiovascular: Regular rate, Normal S1, Normal S2, No murmurs Abdominal: Active bowel sounds, Soft, no distention, no tenderness Extremities: No edema, Normal pulses, No tenderness/swelling Skin: No Significant rash, except past surgical scars Neuro: Normal speech, sensorimotor deficits none Psych/Mental Status: Mental status NL, Mood NL Nurse was there as sharperone during examination Operations or Procedures FLIGHT ENGINEER INSPECTOR and stenting of right internal carotid artery, Condition at Discharge: Stable Final Diagnosis/Problems List B/L Carotid artery stenosis s/p FLIGHT ENGINEER INSPECTOR and stenting of right internal carotid artery HTN T2 DM UTI complicated Discharge Disposition: Home Discharge Instruct/Medications Diet: Consistent carbohydrate, Cardiac 2g Na,low cholest Diet comment: Cardiac 2g Na,low cholest Consistent carbohydrate Activity: No Restrictions, As Tolerated Follow Up/Referral: PCP and cardiology for follow up Medications: Keflex 500 mg 2 times daily for 10 days and Resume home medications Discharge Statement: "Patient was advised to return to the ER or call 911 if any headaches, dizziness, shortness of breath, chest pain, abdominal pain, bleeding, fevers, or worsening of medical condition. Patient was counseled about treatment plan, medications, possible side effects, patientverbalized understanding. All questions were answered to the best of my ability. This discharge took greater then 30 minutes in planning, reviewing documentation, counseling the patient, and discussing with other team members." ASSESSMENT ASSESSMENT Assessment B/L Carotid artery stenosis s/p FLIGHT ENGINEER INSPECTOR and stenting of right internal carotid artery Date of Service: Oct 08, 2024 Billing Provider: ROBBY TINEO MD Common Visit Codes: 38682-ASZ/OBS DISCH DAY >30min REKHA PAULINO RESIDENT Oct 08, 2024 12:09 ROBBY TINEO MD Oct 11, 2024 23:01
[2024-10-08 12:45] VITALS: BP 111/74; PULSE 81; RESP 17; TEMP 98.1; O2SAT 98
--- NOTE | 2024-11-05 11:40 | DVHOP2 ---
Operative Report - 2 Report Details Date: 10/07/24 Preop Diagnosis: Carotid stenosis Postop Diagnosis: B/L Carotid artery stenosis s/p EMBOSSER APPRENTICE and stenting of right internal carotid artery HTN T2 DM UTI complicated Surgeon: Cristofer Arteaga MD Anesthesiologist: Conscious sedation. Anesthesia: Mac Consent: The patient was informed of the risks and benefits of the procedure. These include but are not limited to complications of anesthesia, postoperative infection, incomplete relief of symptoms, recurrence of symptoms, damage to blood vessels, nerves and tendons, deep venous thrombosis, pulmonary embolism and possible need for repeat surgery in the future. Complications: No complications. Estimated Blood Loss: 5 cc Findings: Right internal carotid stenosis Indications for Surgery: Previous TIA. Right internal carotid stenosis. Name of Procedure Performed Bilateral common carotid artery angiography. Cerebral angiography. Evaluation of bilateral vertebral arteries. EMBOSSER APPRENTICE and stenting of the proximal right internal carotid artery. Procedure Details Procedure Details: prior local anesthesia with 2% lidocaine to the right groin full informed consent obtained the patient was prepped and draped in usual fashion followed by placement of a six Slovak sheath into the right femoral artery and evaluation with a multipurpose catheter into the right innominate and common carotid artery as well as right internal carotid artery. Visualization of the left co mmon carotid artery. Bovine anatomy identified. The left common carotid artery arises at the base of the right innominate alongside the right common carotid artery. After an angiographic evaluation revealed a proximal right internal carotid artery stenosis of about 75% and patency of the left common carotid artery with patency of the subclavian bilaterally as well as innominate and bilateral vertebrals. We proceeded to place an eight Slovak sheath into the femoral artery and cannulate the right common carotid artery with an eight Slovak multipurpose guide. Anticoagulation was instituted with Angiomax. Digital subtraction angiography was performed in multiple views of the right internal carotid artery revealing a significant stenosis with a previous history of TIAs as mentioned. We then proceeded to place an Emboshield device into the distal right internal carotid artery. Subsequent to deploying the Emboshield filter we placed a 5 x 20 mm Viatrac 14+ balloon. The balloon was inflated to approximately five atmospheres. We then removed the balloon. There was no dissection of the vessel. At this point we then inserted a nine/7 x 30 mm Xact carotid stent this was deployed without difficulty over the existing lesion overlapping the common carotid and internal carotid artery and over the diseased segment. We post dilated with the same Viatrac 5 x 20 mm balloon. There was excellent antegrade flow without thrombus formation and/or dissection. We then removed the Emboshield device with a specified extraction device. Post cerebral angiography performed reveals no stenosis and/or embolization into distal cerebral vasculature. The patient remained neurologically stable throughout the procedure without impairment and or symptoms. The blood pressure remained stable. A Perclose device was used to seal the right femoral artery after an angiographic evaluation revealed proper indications. Impression successful EMBOSSER APPRENTICE and stenting of the right internal carotid artery. Patent left internal carotid artery stent. Recommendations: Patient will be kept overnight for observation. Dual antiplatelet therapy to continue. Condition Good Disposition Still a Patient Date of Service: Oct 07, 2024 Billing Provider: CRISTOFER ARTEAGA Sr., MD Cardiology Common Codes: [id number] INP/OBS CARE (High) ( bilateral carotid and cerebral angiography. Visualization of left subclavian left vertebral right innominate left internal carotid and right vertebral and internal carotid underlying bovine circulation.) CRISTOFER ARTEAGA Sr., MD November 05, 2024 11:40
== END 2024-10-08 12:50 | disposition home or self-care (01) | DRG 35 ==
LOC: CATH 09:57 → OVERFLOW 16:26 → TELE-CENTR 17:21
PROVIDERS: ADMIT Internal Medicine; ATTEND Internal Medicine
PROC: 037K3DZ Dilation of Right Internal Carotid Artery with Intraluminal Device, Percutaneous Approach (ICD-10-PCS; principal; 2024-10-07)
PROC: B315YZZ Fluoroscopy of Bilateral Common Carotid Arteries using Other Contrast (ICD-10-PCS; 2024-10-07)
PROC: B316YZZ Fluoroscopy of Right Internal Carotid Artery using Other Contrast (ICD-10-PCS; 2024-10-07)
DX: I65.23 Occlusion and stenosis of bilateral carotid arteries (principal); Z00.6 Encounter for examination for normal comparison and control in clinical research program; N39.0 Urinary tract infection, site not specified; I10 Essential (primary) hypertension; E11.9 Type 2 diabetes mellitus without complications; Z90.49 Acquired absence of other specified parts of digestive tract; Z88.0 Allergy status to penicillin; Z91.041 Radiographic dye allergy status
CPT/HCPCS: 36223; 36415; 37215; 80048; 80053; 81001; 82962; 83036; 83735; 85025; 97163; 99152; 99153; G0378; J1815; J2250; J3490; Q9967